=== PATIENT | male | born 1995 | race Caucasian/White ===

== ENCOUNTER 2017-08-21 16:22 | Emergency (ER) | payer BC ==
[2017-08-21 16:32] VITALS: BP 136/98
--- NOTE | 2017-08-21 16:37 | UC ---
Respiratory Complaint HPI - HPI Summary HPI Summary: 22 y/o male presents to the urgent care c/o productive cough, fever, chills, wheezing, SOB, fatigue, body aches. Pt reports symptoms started 1 week ago. He went at [facility] and DR Jose Avendaño for bronchitis. His last dose was taken today and he feels cough is worsen. He has Hx of Asthma and yesterday he developed SOB and wheezing. He has been using his albuterol inhaler q6hrs. Pt denies chest pain, abdominal pain, HARRIS, N/V/D. - History of Current Complaint Chief Complaint: UCRespiratory Stated Complaint: COUGH/COLD Time Seen by Provider: 08/21/17 16:36 Hx Obtained From: Patient Onset/Duration: Gradual Onset, Lasting Weeks - 1 week, Still Present, Worse Since - yesterday Timing: Constant Severity Initially: Moderate Severity Currently: Moderate Pain Intensity: 4 Pain Scale Used: 0-10 Numeric Character: Cough: Productive, Sputum Description: - yellowish Aggravating Factors: Recumbent Position Alleviating Factors: Bronchodilator Associated Signs And Symptoms: Positive: Fever, Chills, Wheezing, URI, Nasal Congestion - Risk Factors Pulmonary Embolism Risk Factors: Negative Cardiac Risk Factors: Negative Pseudomonas Risk Factors: Negative Tuberculosis Risk Factors: Negative - Allergies/Home Medications Allergies/Adverse Reactions: Allergies Allergy/AdvReac Type Severity Reaction Status Date / Time pecan nut Allergy Airway Verified 08/21/17 16:33 Obstruction walnut Allergy Airway Verified 08/21/17 16:33 Obstruction Home Medications: Home Medications Albuterol HFA INHALER* [Ventolin HFA Inhaler*] 2 puff INH Q6HR 08/21/17 [ History Confirmed 08/21/17] Fluticasone-Salmeterol 250-50* [Advair Diskus 250-50*] 2 puff INH DAILY [History Confirmed 08/21/17] PMH/Surg Hx/FS Hx/Imm Hx Previously Healthy: Yes Respiratory History: Asthma - Surgical History Surgical History: None - Family History Known Family History: Positive: None - Pt denies FMHX - Social History Occupation: Student Lives: Dormitory/Roommates Alcohol Use: Occasionally Substance Use Type: Marijuana Smoking Status (MU): Never Smoked Tobacco - Immunization History Vaccination Up to Date: Yes Review of Systems Constitutional: Fever, Chills, Fatigue, Other - body aches Skin: Negative Eyes: Negative ENT: Nasal Discharge, Sinus Congestion Respiratory: Shortness Of Breath, Cough, Other - wheezing Cardiovascular: Negative Gastrointestinal: Negative Genitourinary: Negative Motor: Negative Neurovascular: Negative Musculoskeletal: Negative Neurological: Negative Psychological: Negative Is Patient Immunocompromised?: No All Other Systems Reviewed And Are Negative: Yes Physical Exam Triage Information Reviewed: Yes Vital Signs: Initial Vital Signs Temp 97.8 F 08/21/17 16:30 Pulse 82 08/21/17 16:30 Resp 18 08/21/17 16:30 BP 136/98 08/21/17 16:30 Pulse Ox 98 08/21/17 16:30 - Additional Comments VITAL SIGNS: Reviewed. GENERAL: Patient is a well developed and nourished male who is sitting comfortable in the examining table. Patient is not in any acute respiratory distress. HEAD AND FACE: No signs of trauma. No ecchymosis, hematomas or skull depressions. No sinus tenderness. edematous erythematous nasal mucosa with yellowish discharge, EYES: PERRLA, EOMI x 2, No injected conjunctiva, clear watery eyes, no nystagmus. No photophobia. EARS: Hearing grossly intact. Ear canals and tympanic membranes are within normal limits. MOUTH: Positive pharynx with erythema, no exudates,no palatal petechiae. no B/L tonsillar enlargement Uvula in midline. NECK: Supple, trachea is midline, Positive anterior cervical lymphadenopathy, no JVD, no carotid bruit, no c-spine tenderness, neck with full ROM. No meningeal signs, no Kernig's or brudzinskis signs. CHEST: Symmetric, no tenderness at palpation LUNGS: Breath sounds presents to auscultation bilaterally. B/L scattered wheezing w/ mild rhonchi. No crackles. CVS: Regular rate and rhythm, S1 and S2 present, no murmurs or gallops appreciated. ABDOMEN: Soft, non-tender. No signs of distention. No rebound no guarding, and no masses palpated. Bowel sounds are normal. EXTREMITIES: FROM in all major joints, no edema, no cyanosis or clubbing. NEURO: Alert and oriented x 3. No acute neurological deficits. Speech is normal and follows commands. SKIN: Dry and warm UC Diagnostic Evaluation - Laboratory O2 Sat by Pulse Oximetry: 98 Respiratory Course/Dx - Course Course Of Treatment: 22 y/o male presents to the urgent care c/o productive cough, fever, chills, wheezing, SOB, fatigue, body aches. Pt reports symptoms started 1 week ago. He went at [facility] and DR Jose Avendaño for bronchitis. His last dose was taken today and he feels cough is worsen. He has Hx of Asthma and yesterday he developed SOB and wheezing. He has been using his albuterol inhaler q6hrs. Pt denies chest pain, abdominal pain, HARRIS, N/V/D.Hx obtained. B/ Lscattered wheezing w/ mild rhonchi on examination.Asthma exacerbation: due to Acute Bronchitis: Prednisone and Albuterol Treatment ordered, given by nurse. Patient tolerated well treatment and lungs improved, mild wheezing. Patient prescribed Augmentin PO and Prednisone taper dose, as directed below. The patient was recommended to increase fluid intake. PT recommended to return to the clinic or go to the nearest ER if symptoms do not improve or worsen. Pt's BP is elevated today advised to decrease salt in diet, monitor BP and f/u with PCP for further management. Patient understood and agreed w/ plan of care. - Differential Dx/Diagnosis Differential Diagnosis/HQI/PQRI: Asthma, Bronchitis, Influenza, Lower Resp Infection, Sinusitis, Other - Pneumonia Provider Diagnoses: 1- Asthma exacerbation. 2-Bronchitis. 3-Cough. 4- Elevated BP w/o Hx of HTN Discharge - Discharge Plan Condition: Stable Disposition: HOME Prescriptions: Amoxicillin/Clavulanate TAB* [Augmentin TAB 875*] 875 mg PO BID #19 tab predniSONE TAB* [Deltasone TAB*] 20 mg PO DAILY #8 tab Patient Education Materials: Asthma (ED), Acute Bronchitis (ED), Low-Sodium Diet (ED) Referrals: [facility] [Outside] - 3 Days Additional Instructions: 1-Please take full course of antibiotic to avoid resistance. 2-Take Tessalon PO tabs as directed and use the albuterol inhaler to alleviate cough. Increase fluid intake, rest and eat well. 3- If symptoms do not improve or worsen or your develop SOB with fever and severe wheezing please go immediately to the ER further evaluation and treatment. 4- F/u with your PCP in 3 days for further management on your Asthma 5-Your BP is elevated today. please decrease salt in your diet, monitor BP and if it continues to be elevated please f/u with your PCP for further management
[2017-08-21] MEDS ORDERED: predniSONE TAB* 20 MG PO ONE (16:46)
[2017-08-21] MEDS ORDERED: Albuterol 2.5 MG/3 ML NEB.SOL* (0.083%) INH ONE (16:46)
--- NOTE | 2017-08-21 17:05 | RAD ---
INDICATION: Productive cough. Fever. COMPARISON: None TECHNIQUE: PA and lateral dual-energy views were obtained. FINDINGS: Bones/Soft Tissues: There are no acute bony findings. Cardiomediastinal: The cardiomediastinal silhouette is normal. Lungs: There are no infiltrates. Pleura: There are no pleural effusions. Other: None IMPRESSION: NORMAL CHEST
[2017-08-21] MEDS ORDERED: Amoxicillin/Clavulanate TAB* 875 MG PO ONE (17:31)
== END 2017-08-21 17:57 | disposition home or self-care (01) ==
LOC: UCEAST 16:22
DX: J45.901 Unspecified asthma with (acute) exacerbation (principal); R05 Cough; R03.0 Elevated blood-pressure reading, without diagnosis of hypertension
CPT/HCPCS: 71046; 99202; A9270-GY; G0463; J7512